=== PATIENT | male | born 1940 | race Caucasian/White ===

== ENCOUNTER → 2017-05-10 | Outpatient (CLI) | payer MEDICARE ==
[2017-05-10 08:20] LABS: Basophils # (A) 0.1 k/uL (0-0.2); Basophils % (A) 1 %; CH 32.7; CHCM 32.1; Eosinophils # (A) 0.2 k/uL (0-0.7); Eosinophils % (A) 5 %; HCT 44.1 % (39.0-53.0); HDW 2.21; HGB 14.1 gm/dL (13.0-17.5); Luc # (Auto) 0.15; Luc % (Auto) 4; Lymphocytes # (A) 1.4 k/uL (1.0-4.8); Lymphocytes % (A) 36 %; MCH 32.7 pg (25.0-35.0); MCHC 31.9 g/dL (31.0-37.0); MCV 102.6 fL (80.0-100.0); Macrocytosis Slight; Mean Platelet Volume 7.1; Monocytes # (A) 0.2 k/uL (0-1.0); Monocytes % (A) 6 %; Neutrophils # (A) 1.8 k/uL (1.3-7.7); Neutrophils % (A) 48 %; RDW 13.1 % (11.5-15.5); WBC 3.7 k/uL (3.8-10.6)
[2017-05-10 09:57] LABS: ALT 40 U/L (21-72); AST 49 U/L (17-59); Alkaline Phosphatase 54 U/L (38-126); Anion Gap 8 mmol/L; Blood Urea Nitrogen 25 mg/dL (9-20); Calcium 9.3 mg/dL (8.4-10.2); Carbon Dioxide 28 mmol/L (22-30); Chloride 102 mmol/L (98-107); Cholesterol 217 mg/dL (<200); Glucose 85 mg/dL (74-99); HDL Cholesterol 101 mg/dL (40-60); Non-African American GFR(MDRD) >60 (>60 ml/min/1.73 sqM); Potassium 4.6 mmol/L (3.5-5.1); Sodium 138 mmol/L (137-145); Total Bilirubin 0.8 mg/dL (0.2-1.3); Total Protein 6.7 g/dL (6.3-8.2)
[2017-05-10 11:58] LABS: Hemoglobin A1C 5.5 % (4.2-6.1)
== END | disposition home or self-care (01) ==
LOC: LABWHC1 07:32
PROVIDERS: ATTEND Internal Medicine Geriatric Medicine
DX: D72.819 Decreased white blood cell count, unspecified (principal); R79.9 Abnormal finding of blood chemistry, unspecified; E78.00 Pure hypercholesterolemia, unspecified; R00.1 Bradycardia, unspecified; N40.0 Benign prostatic hyperplasia without lower urinary tract symptoms
CPT/HCPCS: 36415; 80053; 80061; 83036; 84153; 84439; 84443; 85025

== ENCOUNTER → 2017-05-31 | Outpatient (CLI) | payer MEDICARE ==
--- NOTE | 2017-05-31 10:11 | US ---
EXAMINATION TYPE: US duplex aorta DATE OF EXAM: 05/31/2017 COMPARISON: NONE CLINICAL HISTORY: Thoracic Aortic Aneurysm I71.2. EXAM MEASUREMENTS: Abdominal Aorta: Proximal: 2.0cm Mid: 1.9cm Distal: 1.5cm Bifurcation: 1.4cm right, 1.3cm left Area of proximal aorta obscured by bowel gas. Atherosclerotic changes noted mid. IMPRESSION: No sonographic evidence of abdominal aortic aneurysm. Moderate grayscale atheromatous marcelino quing.
--- NOTE | 2017-05-31 12:25 | CT ---
EXAMINATION TYPE: CT chest w con DATE OF EXAM: 05/31/2017 COMPARISON: CT chest May 22, 2016. HISTORY: Thoracic Aortic Aneurysm CT DLP: 217.40 mGycm. Automated Exposure Control for Dose Reduction was Utilized. TECHNIQUE: CT scan of the thorax is performed following with IV Contrast, patient injected with 100 ml mL of Omnipaque 300. FINDINGS: LUNGS: Mild biapical parenchymal/pleural scarring is redemonstrated. There is some residual left basi lar linear scarring and/or atelectasis redemonstrated improved from prior. There is stable 3 mm calci fied nodule right midlung on axial image 29. No new suspicious noncalcified parenchymal nodule or mas s is seen. No pleural effusion or pneumothorax is evident bilaterally. MEDIASTINUM: There are no greater than 1 cm hilar or mediastinal lymph nodes. No cardiomegaly or p ericardial effusion is seen. There is coronary artery calcification which is noted marker for marie ry artery disease. Ascending aorta measures up to 3.9 cm in diameter on axial image 36 not significan tly changed from prior. There is some ectatic course and mild atherosclerotic change of descending ao rta noted. There is multilevel spurring in the spine. OTHER: Healed fractures of the anterolateral left upper to mid ribs are redemonstrated. IMPRESSION: Stable 3.9 cm borderline aneurysm of ascending aorta.
== END | disposition home or self-care (01) ==
LOC: RADUSMAIN 08:08
PROVIDERS: ATTEND Internal Medicine Geriatric Medicine
DX: I71.2 Thoracic aortic aneurysm, without rupture (principal); I70.90 Unspecified atherosclerosis
CPT/HCPCS: 93979; 71260; Q9967

== ENCOUNTER → 2018-05-19 | Outpatient (CLI) | payer MEDICARE ==
[2018-05-19 12:41] LABS: Blood Urea Nitrogen 19 mg/dL (9-20)
--- NOTE | 2018-05-19 13:48 | CT ---
EXAMINATION TYPE: CT chest wo/w con DATE OF EXAM: 05/19/2018 COMPARISON: 05/31/2017 HISTORY: thoracic aneurysm w/o rupture CT DLP: 486.2 mGycm. Automated Exposure Control for Dose Reduction was Utilized. TECHNIQUE: CT scan of the thorax is performed following with IV Contrast, patient injected with 100 mL of Isovue 300. FINDINGS: LUNGS: There is redemonstration mild biapical pleural parenchymal thickening, calcific on the right. Right 3 mm calcified midlung granuloma is unchanged and benign. No new concerning pulmonary nodules a re seen. Retrospectively stable 3 mm pulmonary nodules are seen within the lower lobe on image 44 and 35 no focal consolidation, pleural effusion or pneumothorax within either lung. MEDIASTINUM: The ascending aorta is again aneurysmal measured at the level of the main pulmonary gadiel ry measuring 4.0 cm, similar to the prior. The main pulmonary artery is nonenlarged. There are severe three-vessel coronary artery calcifications, marker of coronary artery disease. The aortic root eliel ures 4.0 cm and is also dilated and mildly aneurysmal. There is a conventional three-vessel branch pa ttern of the aortic arch. Mild calcific atheromatous changes are seen of the thoracic aorta. Heart is not enlarged. No pericardial effusion. No mediastinal or axillary adenopathy. OTHER: Mild degenerative changes of the thoracic spine are seen. Healed fractures of the anterolatera l left upper and mid ribs are again noted. Punctate splenic benign parenchymal granulomas are seen. IMPRESSION: Overall stable ascending thoracic aortic aneurysm and aortic root dilatation both measuring 4.0 cm.
== END | disposition home or self-care (01) ==
LOC: RADCTMAIN 12:02
PROVIDERS: ATTEND Internal Medicine Geriatric Medicine
DX: I71.2 Thoracic aortic aneurysm, without rupture (principal)
CPT/HCPCS: 71270; 82565; 84520

== ENCOUNTER → 2019-06-07 | Outpatient (CLI) | payer MEDICARE ==
[2019-06-07 08:42] LABS: African American GFR (CKD) >90 (>60 ml/min/1.73 sqM); Blood Urea Nitrogen 18 mg/dL (9-20)
--- NOTE | 2019-06-07 12:59 | CT ---
EXAMINATION TYPE: CT chest w con DATE OF EXAM: 06/07/2019 COMPARISON: 05/19/2018 HISTORY: Thoracic aortic aneurysm without rupture CT DLP: 223.50 mGycm, Automated exposure control for dose reduction was used. CONTRAST: Performed injected with 100 ml mL of Isovue 300. TECHNIQUE: Axial images were obtained at 5 mm thick sections. Reconstructed images are reviewed on [employer] computer in the coronal plane. FINDINGS: Portion of the thyroid visualized is normal. There is a 0.5 cm calcification within the right upper lobe. There is a 0.5 cm density which appears to be associated with a vessel in the anterior right middle lobe near the lung base. Series 4 image 4 7. A small 0.4 cm densities in the posterior lateral left lung base. Series 4 image 53. There is some mild pleural plaque may be present along the posterior lateral right apex. Lung findings appear stab le from 2018. No enlarged mediastinal or hilar adenopathy is evident. The ascending aorta diameter at the level o f the main pulmonary artery is 3.9 cm. The main pulmonary artery diameter at the bifurcation is 2.4 cm. Coronary artery calcification is present. The aorta at the aortic root is 3.4 cm. The aorta at the main pulmonary artery is 3.9 cm. The aorta a t the aortic arch is 2.6 cm. The aorta at the diaphragm is 2.[address] sections are obtained through the upper abdomen. Abdomen is essentially unremarkable. IMPRESSIONS: 1. Stable 3.9 cm dilatation of the ascending thoracic aorta at the mid ascending thoracic aorta. 2. Small densities scattered within the lungs stable from 2018
== END | disposition home or self-care (01) ==
LOC: RADCTMAIN 07:59
PROVIDERS: ATTEND Internal Medicine Geriatric Medicine
DX: J98.4 Other disorders of lung (principal); I77.810 Thoracic aortic ectasia; R73.9 Hyperglycemia, unspecified
CPT/HCPCS: 82565; 84520; 71260; 36415; Q9967

== ENCOUNTER → 2020-03-01 | Outpatient (CLI) | payer MEDICARE ==
--- NOTE | 2020-03-01 09:39 | XR ---
EXAMINATION TYPE: XR chest 2V DATE OF EXAM: 03/01/2020 COMPARISON: 05/21/2016 TECHNIQUE: PA and lateral views submitted. HISTORY: Cough FINDINGS: The lungs are clear and there is no pneumothorax, pleural effusion, or focal pneumonia. Biapical pl eural thickening and calcification. Chronic rib deformities. Calcified nodule right upper lobe likely related to granuloma. Stable from previous exam. Hypertrophic and degenerative changes spine and the re is mild hyperinflation. Ectasia of the aorta with atherosclerotic change. Calcification right para tracheal and likely related to a lymph node and stable. IMPRESSION: 1. No acute process. Correlate for pleural-based calcifications which can be associated with asbestos related disease. 2. Stable chronic granuloma right upper lobe and calcified lymph node.
== END ==
LOC: RADXRMAIN 09:09
PROVIDERS: ATTEND Nurse Practitioner Gerontology
DX: J84.10 Pulmonary fibrosis, unspecified (principal); I89.8 Other specified noninfective disorders of lymphatic vessels and lymph nodes
CPT/HCPCS: 71046

== ENCOUNTER → 2020-05-30 | Outpatient (CLI) | payer MEDICARE ==
[2020-05-30 13:42] LABS: African American GFR (CKD) >90 (>60 ml/min/1.73 sqM); Blood Urea Nitrogen 15 mg/dL (9-20); Non-African American GFR(CKD) 88 (>60 ml/min/1.73 sqM)
--- NOTE | 2020-05-30 16:01 | CT ---
EXAMINATION TYPE: CT angio chest DATE OF EXAM: 05/30/2020 COMPARISON: 06/07/2019 HISTORY: 80-year-old male I71.6 Ascending aortic aneurysm. TECHNIQUE: Contiguous axial scanning of the chest performed with IV Contrast, patient injected with 1 00 mL of Isovue 370. Coronal/sagittal MIP reconstructions performed. 3-D reconstructions generated on a dedicated PET workstation. CT DLP: 344 mGycm Automated exposure control for dose reduction was used. FINDINGS: Heart normal size without pericardial effusion. Scattered LAD and RCA coronary artery calcifications are present. Aortic root is ectatic at 3.8 cm, unchanged. Ascending aorta ectatic at 3.9 cm, unchanged. Conventional arch vessel branching anatomy with atherosclerotic calcifications. Upper descending thoracic aorta is ectatic at 3.2 cm. Mildly tortuous descending thoracic aorta. Stable ectasia of the midportion and 2.6 cm and distally at 2.5 cm. No thoracic lymphadenopathy by CT size criteria. Stable 4 mm peripheral right lower lobe pulmonary nodule, axial image 46.. Calcified granuloma redemonstrated right upper lobe. 5 mm right middle lobe pulmonary nodule, axial and 46 is unchanged. No consolidation or pleural effusion. Minimal biapical pleural parenchymal scarring. Tiny hiatal hernia. Visualized upper abdomen shows no gross abnormality. Moderate stool burden. Bones: Some anterior endplate spondylosis lower thoracic spine. IMPRESSION: ECTATIC ASCENDING AORTA MEASURING UP TO 3.9 CM, UNCHANGED. ADDITIONAL ECTATIC UPPER DESCENDING THORAC IC AORTA 3.2 CM, ALSO UNCHANGED.
== END | disposition home or self-care (01) ==
LOC: RADCTMAIN 12:38
PROVIDERS: ATTEND Internal Medicine Geriatric Medicine
DX: I77.810 Thoracic aortic ectasia (principal)
CPT/HCPCS: 82565; 84520; 71275; 36415; Q9967

== ENCOUNTER → 2022-03-18 | Outpatient (CLI) | payer MEDICARE ==
[2022-03-18 10:04] LABS: African American GFR (CKD) >90 (>60 ml/min/1.73 sqM); Blood Urea Nitrogen 15 mg/dL (9-20); Non-African American GFR(CKD) 85 (>60 ml/min/1.73 sqM)
--- NOTE | 2022-03-18 12:02 | CT ---
EXAMINATION TYPE: CT angio chest DATE OF EXAM: 03/18/2022 10:50 AM COMPARISON: 05/30/2020 HISTORY: Thoracoabdominal aortic aneurysm CT DLP: 452.1 mGycm Automated exposure control for dose reduction was used. CONTRAST: CTA scan of the thorax is performed without and with IV Contrast, patient injected with 100 mL of Iso casey 370, pulmonary embolism protocol. . FINDINGS: Heart enlarged with tiny pericardial effusion. Dense coronary artery calcifications are present. Aortic root is ectatic at 3.8 cm, unchanged. Ascending aorta ectatic at 4.0 cm, slightly increased. Conventional arch vessel branching anatomy with atherosclerotic calcifications. Upper descending thoracic aorta is ectatic at 3.2 cm. Mildly tortuous descending thoracic aorta. Stable ectasia of the midportion and 2.6 cm and distally at 2.5 cm. No thoracic lymphadenopathy by CT size criteria. Stable 3 mm nodule subpleural right upper lobe axial image 25. Stable 4 mm peripheral right lower lobe pulmonary nodule.. Calcified granuloma redemonstrated right u pper lobe. 5 mm right middle lobe pulmonary nodule. 5 mm right upper lobe calcified benign granuloma. No pneumothorax or pleural effusion. Minimal biapical pleural parenchymal scarring. Subsegmental zhao ges involving the lung bases greater on the left most of the lobe atelectasis or scarring. There is p leural-based thickening and calcification related to asbestos related disease. Small hiatal hernia. Visualized upper abdomen shows no gross abnormality. Tiny splenic granuloma note d Bones: Degenerative changes spine. IMPRESSION: 1. Borderline and mildly aneurysmal dilation ascending aorta measuring 4.0 cm and previously measurin g 3.9 cm 2. Stable multiple 5 mm pulmonary nodules prior exam. 3. Dense coronary artery location. 4. pleural calcification correlates asbestos related disease.
== END | disposition home or self-care (01) ==
LOC: RADCTMAIN 09:24
PROVIDERS: ATTEND Internal Medicine Geriatric Medicine
DX: I71.6 Thoracoabdominal aortic aneurysm, without rupture (principal); I25.10 Atherosclerotic heart disease of native coronary artery without angina pectoris; R91.8 Other nonspecific abnormal finding of lung field
CPT/HCPCS: 82565; 84520; 71275; 36415; Q9967

== ENCOUNTER → 2024-05-16 | Outpatient (CLI) | payer MEDICARE ==
[2024-05-16 12:28] LABS: African American GFR (CKD) >90 (>60 ml/min/1.73 sqM); Blood Urea Nitrogen 19 mg/dL (9-20); Non-African American GFR(CKD) 86 (>60 ml/min/1.73 sqM)
--- NOTE | 2024-05-16 19:58 | CT ---
EXAMINATION TYPE: CT angio chest CT DLP: 614.40 mGycm, Automated exposure control for dose reduction was used. DATE OF EXAM: 05/16/2024 1:38 PM COMPARISON: Multiple CTA Chest with most recent 04/22/2023. CLINICAL INDICATION:Male, 84 years old with history of I71.60 THORACOABDOMINAL ANEURYSM; thoracic ane urysm TECHNIQUE/CONTRAST: CTA scan of the thorax is performed without and with IV Contrast, patient injected with 100 mL of Iso casey 370,. MIP images are created and reviewed. FINDINGS: Lungs/Pleura: No evidence of focal consolidation, pleural effusion or pneumothorax. Minimal biapical pleural pancreatic calcifications with calcified pleural calcifications in the apices. Calcified gran uloma within the right upper lobe. Few stable right lower lobe pulmonary nodules measuring up to 4.5 mm. Bibasilar linear scarring. Airway: Large airways are patent. Heart: Heart is within normal limits for size.. Trace pericardial effusion. Moderate coronary artery calcifications. Vasculature: Mild atherosclerotic calcification of the aorta and its branches. No evidence for aortic dissection or intramural hematoma. Conventional three-vessel aortic arch. The aortic root is stable size mildly ectatic measuring 3.8 cm. The ascending thoracic aorta stable size measuring 4.1 cm, prev iously 4.0 cm. The upper descending thoracic aorta measures up to 3.3 cm which is relatively stable, previously 3.2 cm. The lower descending thoracic aorta is stable measuring 2.7 cm. Mediastinum: No evidence of adenopathy. Musculoskeletal: No acute osseous abnormalities. Healed remote bilateral rib fractures. Multilevel an terior osteophytosis of the lower thoracic spine. Soft Tissues: Unremarkable. Lower neck: No significant findings. Upper Abdomen: No significant findings. IMPRESSION: 1. Stable aneurysm dilatation of the ascending aorta measuring up to 4.1 cm. No evidence for intramur al hematoma or dissection. 2. Stable few pulmonary nodules measuring less than 5 mm. No new or enlarging pulmonary nodules. 3. Similar biapical pleural parenchymal scarring with bilateral apical pleural calcification. Correla te for prior asbestosis exposure. [facility], , 05/16/2024 7:56 PM
== END | disposition home or self-care (01) ==
LOC: RADCTMAIN 11:53
PROVIDERS: ATTEND Internal Medicine Geriatric Medicine
DX: I71.60 Thoracoabdominal aortic aneurysm, without rupture, unspecified
CPT/HCPCS: 36415; 71275; 82565; 84520